=== PATIENT | male | born 1990 | race Two or more races ===

== ENCOUNTER 2022-06-16 02:48 | Emergency (ER) | payer MEDICAID ==
[~2022-06-16] VITALS: Ht 170.2 cm; Wt 76.6 kg
[~2022-06-16 02:48] MED LIST: ALBE200T9 PO
[2022-06-16 03:18] VITALS: BP 128/86
[2022-06-16] MEDS ORDERED: OXYCODONE W/ ACETAMINOPHEN 5/325MG TABLET PO ONE (03:45)
[2022-06-16] MEDS ORDERED: ONDANSETRON ODT 4 MG TAB PO ONE (03:45)
[2022-06-16] MEDS: DexAMETHasone SOD PHOS 10MG/1ML VIAL INJ IM ONE (04:50)
[2022-06-16] MEDS: AZITHROMYCIN 250 MG TAB PO ONE (04:50)
[2022-06-16] MEDS ORDERED: AZIT250T8 PO (04:59)
[2022-06-16] MEDS ORDERED: LURA40TA PO (04:59)
== END 2022-06-16 05:13 | disposition home or self-care (01) ==
LOC: ER 02:48
DX: J06.9 Acute upper respiratory infection, unspecified (principal); F20.9 Schizophrenia, unspecified; F15.90 Other stimulant use, unspecified, uncomplicated; Z59.00 Homelessness unspecified; Z20.822 Contact with and (suspected) exposure to COVID-19
CPT/HCPCS: 36415; 71045; 87426; 87804; 96372; 99284; J1100